=== PATIENT | female | born 1960 | race African-American/Black ===

== ENCOUNTER → 2017-02-02 | Outpatient (CLI) | payer BC ==
--- NOTE | ~2017-02-02 | MY29 ---
[facility] A Service of [facility] RADIOLOGY TEXT RESULTS PATIENT: PRESTON SENA LOCATION: [facility] : 60 UNIT #: [id number] AGE: [address]: Jose Luis Belle MD SEX: F ORDER DR: [id number] [facility] [address] [place], [place] [address] [id number] O MR#: [id number] Acc #: [id number] NAME: PRESTON SENA : 1960 SEX: F STUDY DATE/TIME: 02/02/2017 14:02 UNIT: [facility] ROOM: STUDY DESCRIPTION: MY CATARINA SCREENING W/ CAD BILAT Attending Physician: Jose Luis Belle M.D. Referring Physician: Jose Luis Belle M.D. Ordering Physician: Jose Luis Belle M.D. Primary Care Physician: Jaylin Luna R.N. MEDICAL IMAGING REPORT This report is preliminary unless electronic signature is present EXAM Digital screening mammogram, 02/02/2017, [facility]. HISTORY 57-year-old woman positive family history, grandmother. Annual screen. COMPARISON Mammograms date to 04/24/2006 with most recent 02/09/2015. TECHNIQUE Digital imaging of each breast was completed utilizing screening protocol. Review includes FDA-approved CAD device. FINDINGS Breast parenchyma is moderately dense with a diffuse small nodular parenchymal pattern bilaterally. There are no suspicious microcalcifications. There is no architectural deformity. Subareolar duct prominence is stable bilaterally. IMPRESSION Stable benign mammogram. Annual screening recommended. Patients over the age of 40 are entered into a reminder system with target due date for the next mammogram. A result letter will also be sent to the patient. BIRADS: 2 Benign finding. Dictated by... Bennie Ryan M.D. [facility] A Service [facility] RADIOLOGY TEXT RESULTS PATIENT: PRESTON SENA LOCATION: [facility] : 60 UNIT #: [id number] AGE: [address]: Jose Luis Belle MD SEX: F ORDER DR: THIS IS AN ELECTRONICALLY VERIFIED REPORT Bennie Ryan M.D. at 02/09/2017 7:12 AM DOYLE/reji TD: 02/02/2017 17:05 JOB #: [id number] MEDICAL IMAGING REPORT Page 1 of 1 COPY
== END | disposition home or self-care (01) ==
LOC: CWCC 13:44
DX: Z12.31 Encounter for screening mammogram for malignant neoplasm of breast (principal); Z80.3 Family history of malignant neoplasm of breast
CPT/HCPCS: G0202